=== PATIENT | female | born 1930 | race African-American/Black ===

== ENCOUNTER 2017-02-05 10:11 | Emergency (ER) | payer MEDICARE, MEDICAID ==
[~2017-02-05] VITALS: Ht 152.4 cm; Wt 68.0 kg
[~2017-02-05 10:11] MED LIST: ASPI325T11 PO; CARV40CP PO; ERGO500027 PO; FURO20TA3 PO; GLIM1TAB2 PO; LOSA100T6 PO; POLY255P PO; WITC1MED18 TP; [UNRECOGNIZED DRUG - CODE] PO
[2017-02-05] MEDS ORDERED: HYDROcodone/APAP 5/325MG 1 TAB TABLET PO ONE (11:00)
--- NOTE | 2017-02-05 11:30 | PHYS DOC ---
Past Medical History Past Medical History: CAD, Constipation, Dementia, Diabetes-Type II, Hypertension Past Surgical History: Pacemaker Alcohol Use: None Drug Use: None Adult General Chief Complaint Chief Complaint: MECHANICAL FALL HPI HPI Patient is a 86 year old female who presents with right shoulder pain. Patient states she had a fall yesterday evening when she lost her footing going down 3 steps and fell onto her right shoulder. She denies hitting her head or having loss of consciousness, she denies neck or back pain. She takes no blood thinners. She's been ambulating without difficulty but states she has ongoing right shoulder pain. She's not attempted any pain control and medication. Review of Systems Review of Systems Constitutional: Denies fever or chills [] Eyes: Denies change in visual acuity, redness, or eye pain [] HENT: Denies nasal congestion or sore throat [] Respiratory: reports cough, denies shortness of breath [] Cardiovascular: Denies chest pain GI: Denies abdominal pain, nausea, vomiting, bloody stools or diarrhea [] : Denies dysuria or hematuria [] Musculoskeletal: Denies back pain Integument: Denies rash or skin lesions [] Neurologic: Denies headache, focal weakness or sensory changes [] Current Medications Current Medications Current Medications Medications (Trade) Dose Ordered Sig/Reginald Start Time Stop Time Status Last Admin Dose Admin Acetaminophen/ Hydrocodone Bitart (Lortab 5/325) 1 tab 1X ONCE 02/05/17 11:00 02/05/17 11:01 DC 02/05/17 11:16 1 TAB Ketamine HCl 34 mg 1X ONCE 02/05/17 11:45 02/05/17 11:47 DC 02/05/17 12:37 34 MG Propofol (Diprivan) 200 mg 1X ONCE 02/05/17 11:45 02/05/17 11:46 DC 02/05/17 12:36 200 MG Allergies Allergies Allergies Coded Allergies Type Severity Reaction Last Updated Verified No Known Drug Allergies 01/08/17 No Physical Exam Physical Exam Constitutional: Well developed, well nourished, no acute distress, non-toxic appearance. [] HENT: Normocephalic, atraumatic, bilateral external ears normal, oropharynx moist, no oral exudates, nose normal. [] Eyes: PERRLA, EOMI, conjunctiva normal, no discharge. [] Neck: Normal range of motion, no midline step-offs or tenderness, supple, no stridor. [] Cardiovascular:Heart rate regular rhythm, no murmur [] Lungs & Thorax: Bilateral breath sounds clear to auscultation, no wheeze or crackles Abdomen: soft, no tenderness, no masses, no pulsatile masses. [] Skin: Warm, dry, no erythema, no rash. [] Back: No tenderness, no CVA tenderness. [] Extremities: R humerus ttp mid and proximal, distal pulse intact, shoulder deformity with normal deltoid ttp Neurologic: Alert and oriented X 3, normal motor function, normal sensory function, no focal deficits noted. [] Psychologic: Affect normal, judgement normal, mood normal. [] Current Patient Data Vital Signs Vital Signs Date Time Temp Pulse Resp B/P (MAP) Pulse Ox O2 Delivery O2 Flow Rate FiO2 02/05/17 13:40 64 20 151/67 (95) 97 Room Air 02/05/17 13:10 98.4 98.4 02/05/17 12:55 2.0 EKG EKG [] Radiology/Procedures Radiology/Procedures XR R humerus: Impression: Dislocation at the glenohumeral joint. Evaluation with dedicated x-ray of the right shoulder may be of additional benefit. Post reduction shoulder: IMPRESSION: Interval reduction CXR: IMPRESSION: Suspect mild pulmonary vascular congestion. No consolidated pneumonia is seen Indication: Joint dislocation Consent: Consent was obtained. Procedure: The pre-reduction exam showed distal perfusion and neurologic function to be normal.. The patient was placed in the appropriate position. Sedation with 0.5 mg/kg ketamine and 0.5mg/kg propofol used for conscious sedation. Pt on end-tidal CO2, injected by me, ASA 2, Mallampati 2, risks/ benefits discussed. Reduction of the R shoulder was performed by direct traction/rotation. Post reduction films were obtained and revealed satisfactory reduction. A post-reduction exam revealed distal perfusion and neurologic function to be normal. The affected area was immobilized with shoulder immobilizer. The patient tolerated the procedure well. Complications: none. Course & Med Decision Making Course & Med Decision Making Pertinent Labs and Imaging studies reviewed. (See chart for details) Pt given 1 norco for pain, humerus XRay ordered. XRay shows dislocation rather than fracture. Discussed sedation with pt for reduction. She agreed and pt's shoulder reduced. XRay shows good reduction and no fracture. Pt in shoulder immobilizer. CXR performed due to cough, no pneumonia noted. F/u with Dr. Magdaleno recommended. Zen Disclaimer Dragtanya Disclaimer This electronic medical record was generated, in whole or in part, using a voice recognition dictation system. Departure Departure Impression: Primary Impression: Shoulder dislocation Additional Impression: Cough Disposition: 01 HOME, SELF-CARE Condition: STABLE Referrals: DI MARTINEZ DO (PCP) LINDSEY MAGDALENO II, MD Patient Instructions: Cough, Adult, Shoulder Dislocation Additional Instructions: Schedule follow-up with Dr. Magdaleno for your shoulder dislocation within 1 week. Keep your shoulder in immobilizer until that visit. Problem Qualifiers CHAN CASTELLANOS MD Feb 05, 2017 11:30
--- NOTE | 2017-02-05 11:41 | RAD ---
Exam performed: 2 views right humerus. History: Severe right arm pain status post fall last night. Date of service: 02/05/17. Comparison: None available Findings: Single AP view right humerus is obtained. There is dislocation at the glenohumeral joint. The elbow joint appears preserved. No acute fracture. Impression: Dislocation at the glenohumeral joint. Evaluation with dedicated x-ray of the right shoulder may be of additional benefit.
[2017-02-05] MEDS ORDERED: PROPOFOL 10 MG/ML (20ML) VIAL. IV ONE (11:45)
[2017-02-05] MEDS ORDERED: KETAMINE HCL 500 MG/10 ML VIAL. IV ONE (11:45)
--- NOTE | 2017-02-05 13:13 | RAD ---
Indication cough. Hypertension. Coronary artery disease. A single view of the chest was obtained and is compared to an examination almost one month earlier. Inspiratory effort is not optimal but similar to the previous exam.. Heart size is unchanged. There is perhaps very slight pulmonary vascular congestion. No consolidated pneumonia is seen. There is no pleural fluid or pneumothorax. A bipolar cardiac pacing device is noted. IMPRESSION: Suspect mild pulmonary vascular congestion. No consolidated pneumonia is seen
--- NOTE | 2017-02-05 13:20 | RAD ---
Indication post reduction. AP and Y views of the right shoulder were obtained at 1302 and are compared to a study approximately 90 minutes earlier. Previously identified anterior dislocation at the shoulder has been reduced. No fracture or unexpected finding is seen. IMPRESSION: Interval reduction
[2017-02-05 15:05] VITALS: BP 139/63
== END 2017-02-05 15:07 | disposition home or self-care (01) ==
LOC: ER 10:11
DX: S43.004A Unspecified dislocation of right shoulder joint, initial encounter (principal); R05 Cough; I25.10 Atherosclerotic heart disease of native coronary artery without angina pectoris; F03.90 Unspecified dementia, unspecified severity, without behavioral disturbance, psychotic disturbance, mood disturbance, and anxiety; E11.9 Type 2 diabetes mellitus without complications; I10 Essential (primary) hypertension; Z95.0 Presence of cardiac pacemaker; W10.8XXA Fall (on) (from) other stairs and steps, initial encounter; Y93.39 Activity, other involving climbing, rappelling and jumping off; Y92.89 Other specified places as the place of occurrence of the external cause; Y99.8 Other external cause status
CPT/HCPCS: 23650; 71010; 73030; 73060; 99285; J2704; J3490

== ENCOUNTER → 2017-04-03 | Outpatient (CLI) | payer MEDICARE, MEDICAID ==
[2017-04-05 00:10] LABS: PTH INTACT 98 pg/mL (15-65)
== END | disposition home or self-care (01) ==
LOC: LAB 14:11
PROVIDERS: ATTEND Nurse Practitioner Family
DX: N25.81 Secondary hyperparathyroidism of renal origin (principal)
CPT/HCPCS: 36415; 83970